=== PATIENT | male | born 1980 | race Caucasian/White ===

== ENCOUNTER 2024-03-20 15:21 | Outpatient (CLI) | payer BC, SELFPAY ==
[2024-03-20 17:55] LABS: Hemoglobin A1C 5.5 % (4.0-6.0)
== END 2024-03-20 23:59 | disposition home or self-care (01) ==
LOC: LAB 15:23
PROVIDERS: Visit Provider Physician Assistant
DX: Z13.1 Encounter for screening for diabetes mellitus (principal); G47.33 Obstructive sleep apnea (adult) (pediatric); R06.83 Snoring; R40.0 Somnolence; R94.31 Abnormal electrocardiogram [ECG] [EKG]; R00.2 Palpitations; R07.9 Chest pain, unspecified
CPT/HCPCS: 36415; 83036; 93225; 93227

== ENCOUNTER → 2024-04-11 07:18 | Outpatient (CLI) | payer BC, SELFPAY | LOC: SL 07:19 | PROVIDERS: Visit Provider Physician Assistant | DX: G47.33 Obstructive sleep apnea (adult) (pediatric) (principal); G47.36 Sleep related hypoventilation in conditions classified elsewhere | CPT/HCPCS: G0399 ==

== ENCOUNTER 2024-05-03 09:14 | Outpatient (CLI) | payer BC, SELFPAY ==
[2024-05-03 09:47] LABS: Basophils # 0.1 K/mm3 (0-0.2); Basophils % 1.3 % (0.1-2.0); Eosinophils # 0.4 K/mm3 (0.0-0.4); Eosinophils % 5.3 % (0.1-12.0); Hematocrit 48.3 % (42.0-52.0); Hemoglobin 15.9 g/dL (14.1-18.0); Lymphocytes # 1.9 K/mm3 (0.7-4.5); Lymphocytes % 28.5 % (10-50); Mean Corpuscular HGB Conc 32.9 g/dL (31.8-35.4); Mean Corpuscular Volume 88.2 fl (80-94); Mean Platelet Volume 7.9 fl (7.4-10.4); Monocytes # 0.4 K/mm3 (0.1-1.0); Monocytes % 6.7 % (1.7-9.3); Neutrophils # 3.8 K/mm3 (1.8-7.8); Neutrophils % 58.2 % (37.0-80.0); Platelet Count 253 K/mm3 (142-424); Red Blood Count 5.48 M/mm3 (4.60-6.20); Red Cell Distribution Width 14.2 % (11.5-17.5); White Blood Count 6.5 K/mm3 (4.8-10.8)
[2024-05-03 10:31] LABS: Alanine Aminotransferase 47 U/L (12-78); Albumin Level 4.1 g/dl (3.5-5.0); Alkaline Phosphatase 88 U/L (38-126); Anion Gap 9.7 mEq/L (5-15); Aspartate Amino Transferase 35 U/L (17-59); Bilirubin,Indirect 0.8 mg/dL (0.0-0.9); Bilirubin,Total 0.8 mg/dl (0.2-1.3); Bilirubin,Unconjugated 0.9 mg/dL (0.0-1.1); Blood Urea Nitrogen 16 mg/dl (9-20); Calcium 9.6 mg/dl (8.4-10.2); Carbon Dioxide 26 mmol/L (22.0-30.0); Chloride 108 mmol/L (98-107); Chol/HDL Ratio 5.1 (1-3.5); Cholesterol 275 mg/dl (140-200); Estimated Glomerular Filt Rate 91 ml/min (>60); GFR (African American) 110 ML/MIN (>60); Glucose 105 mg/dl (74-100); HDL Cholesterol 54 mg/dl (40-60); Potassium 4.7 mmoL/L (3.5-5.1); Sodium 139 mmol/L (136-145); Total Protein,Serum 6.8 g/dl (6.3-8.2); Triglycerides 143 mg/dl (30-150); VLDL Cholesterol 29 mg/dL (0-40)
[2024-05-03 10:42] LABS: Direct LDL Cholesterol 145.14 mg/dL (100-129)
[2024-05-03 10:48] LABS: Free T4 (Free Thyroxine) 1.25 ng/dl (0.78-2.19)
[2024-05-03 11:01] LABS: Thyroid Stimulating Hormone 1.34 uIU/mL (0.465-4.68)
== END 2024-05-03 23:59 | disposition home or self-care (01) ==
LOC: LAB 09:14
PROVIDERS: Visit Provider Physician Assistant
DX: I11.9 Hypertensive heart disease without heart failure (principal); Z87.891 Personal history of nicotine dependence; G47.33 Obstructive sleep apnea (adult) (pediatric); R94.31 Abnormal electrocardiogram [ECG] [EKG]; R06.00 Dyspnea, unspecified; K21.9 Gastro-esophageal reflux disease without esophagitis
CPT/HCPCS: 36415; 80048; 80061; 80076; 84439; 84443; 85025

== ENCOUNTER → 2024-11-01 20:25 | Outpatient (CLI) | payer BC, SELFPAY | LOC: SL 20:27 | PROVIDERS: Visit Provider Specialist | DX: R06.81 Apnea, not elsewhere classified (principal); Z78.9 Other specified health status | CPT/HCPCS: 95811 ==